=== PATIENT | female | born 1950 | race Caucasian/White ===

== ENCOUNTER 2023-05-19 07:39 | Inpatient (IN) | payer MEDICARE, SELFPAY ==
[2023-05-08 09:13] VITALS: BMI 29.5
[2023-05-19] VITALS (18 sets, daily range): BP systolic 105–149; BP diastolic 52–85; PULSE 73–90; RESP 14–20; TEMP 35.9–37; O2SAT 16–98; BMI 29.5
[2023-05-19] MEDS: LACTATED RINGERS 1,000 ML 100 ML IV ×3 (08:23→13:30)
--- NOTE | 2023-05-19 09:17 | PM.PREOP ---
Pre-operative Note Interval Note History & Physical reviewed/Exam performed by Physician: Yes Changes to H&P: No
[2023-05-19] MEDS: CEFAZOLIN 2 GM/100 ML PREMIX 100 ML IV ×2 (09:50→17:15)
--- NOTE | 2023-05-19 10:01 | SUR.OPER ---
Prone on spine table, head in foam head support, padded chest and pelvic supports, gel pad at knees, lower legs supported by pillows; nipples, genitalia and toes free of pressure, arms secured on foam padded arm boards at <90 degrees abduction. Tape over blanket at thigh secured to table.
[2023-05-19] MEDS: BUPIVACAINE 0.25% (PF) 30 ML, EPINEPHrine 0.15 MG INJ (10:11)
[2023-05-19] MEDS: BUPIVACAINE LIPOSOME 266 MG/20 ML VIAL INJ (10:12)
--- NOTE | 2023-05-19 13:21 | P.OP_ITS ---
Operative Date/Time/Diagnoses Date of procedure: 05/19/23 Time of procedure: 10:00 Pre-op diagnosis: 1. L4-5 spondylosis with radiculopathy 2. L5-S1 anterolisthesis 3. L5-S foraminal stenosis with radiculopathy Post-op diagnosis: same Procedure & Clinicians Procedure: 1. L4-5, L5-S1 Postero-lateral and posterior interbody fusion 2. L4-5, L5-S1 interbody cage placement. 3. L4-5, L5-S1 decompressive laminectomy with bilateral facetecomies 4. L4-5, L5-S1 Posterior segmental instrumentation 5. Galt of bone marrow from iliac crest 6. Utilization of microsurgical technique and operating microscope 7. Utilization of robotic assisted navigation Same procedure as scheduled: Yes Indications: Patient has been having chronic back pain and worsening lumbar radiculopathy. Patient was found have grade 3 anterolisthesis at L5-S1 with severe bilateral neural foraminal stenosis correlating with her back and leg pain. Patient was scheduled for L4-5 L5-S1 fusion using L4 pedicle as pivot point for assistance of reducing patient has anterolisthesis as well as gaining additional points of fixation to prevent hardware loosening/failure. Patient failed multiple conservative management with worsening pain weakness and numbness in her lower extremity. Patient has been having difficulty performing activity of daily living. After discussing risks benefits of treatment options, patient elected proceed with surgery. Surgeon: Rachael Hurtado Auctioneer Tobacco: Lanette Queen Click Yes if Unassisted: No Anesthesia Type: General Operative Notes Closure Type: primary Specimen(s): none sent Prosthetic devices, grafts, tissues, transplants, or devices: Globus CREO MIS screws, Rise cages Applied: catheter Estimated Blood Loss (mL): 100 Blood products transfused: none Procedure in detail: Patient was seen in the preoperative area. Risks and benefits of the surgery was discussed with the patient. Informed consent was obtained from the patient and placed in the chart. Surgical site was marked. Patient was taken to the operative room. General anesthesia was administered. Prophylactic antibiotic was given to the patient less than 30 min before the incision was made. Patient was placed into a prone position on the [place] table. Patient's back was then prepped and draped in the sterile fashion. Time-out was performed at this time. After patient was prepped and draped, patient's PSIS was palpated and marked bilaterally. Small 1 cm incision was made over the PSIS for placement of the reference probes. Two trocar was placed into the PSIS 1 on each side. The reference probe was attached to the trocar of the reference apparatus. At this time the C-arm imaging was used to confirm AP and lateral of L4-L5, L5- S1 vertebrae and merged the C-arm imaging using the Root Orange navigation system with the CT of the lumbar spine. After successful merging was completed and confirmed, skin marker was used to kaye out the skin incision using the NanoH2O robotic arm. Bilateral incision was made at this time. Pre templated trajectory was used and guided using the NanoH2O robotic navigation system for bilateral L4, L5, S1 pedicle screw placement. This was done by using the robotic arm to guide the high-speed bur to make a cortical entry point. Next a drill was placed also using the robotic arm and guided using the navigation system drilling partially through bilateral L4, L5 and S1 pedicles. Next L4, L5, S1 pedicle screws it was pre templated and measured was placed onto the power non emergency services ambulance driver and inserted into the pedicles bilaterally. After all 6 screws were placed C-arm imaging was taken of both AP and lateral to confirm the placement. Excellent placement of the screws were confirmed and a matched precisely with the pre planned screw placement using the navigation system. MARs retractor was inserted using FreshPlanetivation guidence. Globus MARS retractors was placed inside the incision and docked onto the L4 and L5 lamina. Using microsurgical technique and operating microscope, a L4, L5 laminectomy and L4-5, L5-S1 facetectomy was performed using a Kerrison rongeur. The laminectomy and facetectomy was performed in order to decompress patient's cauda equina as well as the nerve roots exiting at the L4-5, L5-S1 level. Patient was found have severe lateral recess and neural foramen stenosis which was fully decompressed after the laminectomy facetectomy. More than 75% of the facets were removed during the process of decompression rendering L4-5, L5-S1 level grossly unstable and required a fusion procedure at the same time. The disc space at L4-5, L5-S1 was identified, and a total diskectomy was performed at L4- 5, L5-S1 level. The endplates were decorticated using a rasp and shaver. The total diskectomy and decortication was performed at L4-5, L5-S1 level in order to to accomplish a L4-5, L5-S1 fusion. The local bone from the laminectomy and facetectomy was saved for local bone grafting. After the total diskectomy and decortication was completed, Trifecta bone graft material was combined with local bone that was harvested earlier. At this time, a separate skin is incision was made over the iliac crest. A Jamshidi needle was inserted into the iliac crest through a separate skin incision. 5 cc of bone marrow aspiration was obtained through the separate skin incision using a Jamshidi needle from the iliac crest. The bone marrow aspiration was combined with local bone and the Trifecta bone grafting material. The bone grafting material was placed into the L4-5, L5-S1 interbody space along with a expandable cage. The cage was expanded to its maximum height using the torque limiting screwdriver. The disc preparation as well as the cage insertion were also performed under navigation guidance. After the cage was placed, AP and lateral C-arm imaging was taken to confirm placement of the cage and excellent position was confirmed. Globus MARS retractor was inserted and docked onto the L4-5, L5-S1 posterolateral gutter on the right side. Using the power drill, posterior- lateral decortication was performed at L4-5, L5-S1 level until bleeding cortical bone was identified. The remaining bone grafting material was placed into the L4-5, L5-S1 posterior lateral gutter he order to accomplish posterolateral fusion at the L4-5, L5-S1 level. At this time the tulips were attached to the L4, L5, S1 pedicle screw shanks. After measuring the length of the rods, they were inserted into the tulips of the pedicle screws and locked in place using locking caps and torque limiting screwdriver bilaterally. Total 6 caps and 2 titanium rods was used in order to complete the posterior instrumentation construct. During the rodney insertion, the right L5 pedicle screw was felt to not have appropriate purchase. Using 2 C arms the L5 pedicle screw was redirected by using a Jamshidi needle into the L5 pedicle and then a guidewire was placed over the Jamshidi needle and then finally a 7.5 mm cannulated screw was placed over the guidewire into the L5 pedicle. Appropriate purchase was achieved by using the new trajectory for the L5 pedicle screw placement. Locking caps was used to reduce the patient's spondylolisthesis at L5-S1. Partial reduction was able to be accomplished with concerns of additional reduction may cause screw pullout and loosening. After all the hardware was placed, and confirmed with AP and lateral C-arm imaging, the wound was then irrigated with sterile normal saline and packed with Ray-Radha gauze for 3 min to accomplish hemostasis. After the gauze was removed the deep fascia was closed with #1 Vicryl suture. The subcutaneous layer was closed with 2-0 Vicryl. The skin was closed with skin josé miguel. Patient tolerated the procedure well. There were no complications. The Operation could not have been safely performed without compromising the technical result or length of the procedure, without the assistance of a skilled medical surgical tech. The medical surgical tech was medically necessary for proper positioning, retraction and manipulation of instruments, proper exposure, surgical preparation, and manipulation of tissue. Neuro monitoring system was used to monitor patient's neurologic status throughout entire procedure. There was no disturbance of the neural monitoring signals throughout the case. Complications: none Post-operative Condition: stable Disposition: PACU Plan for aftercare: Admit to inpatient hospital
--- NOTE | 2023-05-19 13:35 | DI.RAD.S_ITS ---
PROCEDURE: XR LUMBAR SPINE 2-3V INDICATIONS: L4-5. L5-S1 TLIF TECHNIQUE: Single lateral intraoperative low resolution fluoroscopic spot film COMPARISON: None. FINDINGS: Lumbar discectomy and fusion with posterior rodney and screw instrumentation in good position noted L4-5 and L5-S1 as indicated in the history IMPRESSION: 1. Fluoroscopic guidance Approved by: Armani Dash M.D. on 05/19/2023 at 15:46
[2023-05-19] MEDS: HYDROMORPHONE 1 MG INJ IV ×2 (14:06→14:23)
[2023-05-19] MEDS: ONDANSETRON 4 MG/2 ML INJ IV (14:07)
[2023-05-19] MEDS: OXYCODONE IR 5 MG TABLET PO (14:10)
[2023-05-19] MEDS: methocarbamoL 500 MG TABLET 750 MG PO (14:10)
[2023-05-19] MEDS: ACETAMINOPHEN IV 1,000 MG/100 ML VIAL 400 MG IV (14:19)
[2023-05-19] MEDS: GABAPENTIN 300 MG CAPSULE PO ×2 (15:44→20:51)
[2023-05-19] MEDS: ACETAMINOPHEN 325 MG TABLET 650 MG PO ×2 (18:03→23:26)
[2023-05-19] MEDS: SENNOSIDES 8.6 MG TABLET 17.2 MG PO (20:51)
[2023-05-19] MEDS: DOCUSATE 100 MG CAPSULE PO (20:51)
[2023-05-19] MEDS: MELATONIN 3 MG TABLET PO (20:51)
[2023-05-19] MEDS: OXYCODONE IR 10 MG TABLET PO (20:55)
--- NOTE | 2023-05-19 23:17 | PM.PN.1 ---
Subjective Subjective Interval history: nurse jacklyn called at 2200- stated - noted pt heart rate mostly 80s then some pvcs?- nurse thought irregular- HR report jump around up to 150s short span? put on tele- then ekg -one sinus and then also an area-indeterminate?- ( reviewed chart (- no vitals documented after 1999 yet)--on further inquiry-- per nurse current vitals NL and pt asymptomatic- pt on fluids/asymptomatic - rec -monitor-- if change then hospitalist consult.- Exam Vital Signs (past 8 hours): - 05/19/23 15:25 05/19/23 15:55 05/19/23 16:55 Temperature 97.4 F L 96.7 F L Pulse Rate 76 75 80 Respiratory Rate 15 16 18 Blood Pressure 136/59 L 127/67 137/59 L Pulse Oximetry 96 96 95 Oxygen Flow Rate 2 0 1 05/19/23 17:55 05/19/23 20:00 Temperature 96.9 F L 97.2 F L Pulse Rate 85 85 Respiratory Rate 16 16 Blood Pressure 132/62 131/63 Pulse Oximetry 93 94 Oxygen Flow Rate 0 0 Oxygen Delivery Method Nasal Cannula Oxygen Flow Rate 0 PFSH Medical History (Updated 05/08/23 @ 10:15 by Elaina Parker RN) History of COVID-19 (04/2019) Spinal stenosis Pre-diabetes Kidney stones Sciatica Surgical History (Updated 05/08/23 @ 10:11 by Elaina Parker RN) Hx of colonoscopy (03/2023) Hx of knee surgery Hx of tonsillectomy S/P epidural steroid injection Social History household members: spouse Smoking Status: Never smoker alcohol intake: current Quality VTE Deep Vein Thrombosis/Pulmonary Embolism Present on Admission: No
[2023-05-19] MEDS: LACTATED RINGERS 1,000 ML 125 ML IV (23:26)
--- NOTE | 2023-05-20 00:21 | PC.NURSE ---
Addendum entered by Patsy Garibay R.N. 05/20/23 05:26: Last telemetry reading was SR and BP improved back up to 125/63. Has remained asymptomatic. ICU contacted this morning and report they have not been seeing any tachycardic HR past several hours. Patient has been awake most of night, repositioned as she requests but she is continuing to decline getting out of bed until PT comes. Bed was positioned into chair formation for her and she [place]. Original Note: Patient is alert and oriented. Breath sounds CTA with RA sat of 94%; on continuous oximetry. HR noted to be irregularly irregular so placed on telemetry to determine rhythm and AVIATION PROJECT ENGINEER reports periods of SR with intermittent HR up into 150's where rhythm could not be determined. EKG done which showed similar results. Coordinator, Charmaine, informed and she took EKG to ER MD who declined to interpret the results. Dr. Velásquez contacted by GRIFFIN Stevenson and she initally wanted hospitalist to consult but shortly after she called back and details of what was done was repeated. Told that HR on tele monitor is showing stable rhythm most of the time but continues to intermittently go back up into the 130-150 range. Patient has been asymptomatic so Dr. Velásquez decided to just continue with telemetry monitoring and to notify her if patient's condition changes. At 0000 patient did state she does intermittently feel her heart with palpitations but only briefly and has no chest pain or SOB. BP did decline some at 0000 to 105/52 with MAP of 65. No dizziness or lightheadedness. Denies nausea. BT present but no flatus as yet. Indwelling catheter is patent. Is assisted to reposition q2h but has declined to get out of bed to stand, walk or sit in chair. Dressing to back is CDI. Has had pain 5-7/10 and has been medicated with both oxycodone + tylenol and has had ice pack to back with good results. CMS is intact. Is wearing bilateral calf SCD's. Fall risk score is high and bed alarm is activated.
[2023-05-20] MEDS: CEFAZOLIN 2 GM/100 ML PREMIX 100 ML IV (01:51)
[2023-05-20] MEDS: OXYCODONE IR 10 MG TABLET PO ×6 (01:54→23:53)
[2023-05-20 04:14] VITALS: BP 125/63; PULSE 83; RESP 16; TEMP 36.3; O2SAT 94
[2023-05-20 06:24] LABS: Hematocrit 34.8 % (36-46); Hemoglobin 11.7 g/dL (12.0-16.0)
[2023-05-20 08:00] VITALS: BP 127/60; PULSE 72; RESP 18; TEMP 36.4; O2SAT 96
--- NOTE | 2023-05-20 08:02 | PM.PNPO.1 ---
Subjective Subjective Date Patient Seen: 05/20/23 Time Patient Seen: 08:03 Interval history: Patient denies chest pain. No nausea or vomiting. States yesterday evening to nurse told her her heart was racing and she did note some palpitations but states otherwise she would not have known. She has no history of heart problems. Her pain this morning is [id number]. Denies fever chills. No shortness of breath. Exam Vital Signs (past 8 hours): - 05/20/23 04:14 Temperature 97.3 F L Pulse Rate 83 Respiratory Rate 16 Blood Pressure 125/63 Pulse Oximetry 94 Oxygen Flow Rate 0 Oxygen Delivery Method Room Air Oxygen Flow Rate 0 Narrative Exam Narrative: Pleasant 72-year-old female resting comfortably in bed in no apparent distress. Motor functions intact bilateral lower extremities. Sensation grossly intact to light touch bilateral lower extremities. Const General: cooperative and comfortable Nutritional Appearance: average body habitus Orientation: alert Resp Effort & Inspection: normal respiratory effort and able to speak in complete sentences Objective Labs 05/20/23 05:20 Labs: Laboratory Results - last 24 hr 05/20/23 05:20 Hgb 11.7 L Hct 34.8 L PFSH Medical History History of COVID-19 (04/2019) Spinal stenosis Pre-diabetes Kidney stones Sciatica Surgical History Hx of colonoscopy (03/2023) Hx of knee surgery Hx of tonsillectomy S/P epidural steroid injection Social History household members: spouse Smoking Status: Never smoker alcohol intake: current Assessment & Plan Post-op Postoperative Procedures: Procedures Operation Date: 05/19/23 09:15 Actual Procedure Side Surgeon p L4-5, L5-S1 TLIF with posterior instrumentation-Robot Rachael Hurtado MD Postoperative day: 1 Postoperative status narrative: Stable, Dr. Arteaga called last night for tachycardia possible PVCs patient remained asymptomatic overnight Postoperative plan narrative: Multimodal pain management Ambulate with physical therapy, limit bending, twisting, lifting Continue tele for now if patient continues to remain asymptomatic with physical therapy we will discontinue tele Disposition, to be determined Quality VTE Deep Vein Thrombosis/Pulmonary Embolism Present on Admission: No
[2023-05-20] MEDS: GABAPENTIN 300 MG CAPSULE PO ×3 (08:48→20:21)
[2023-05-20] MEDS: ACETAMINOPHEN 325 MG TABLET 650 MG PO ×3 (08:48→22:26)
[2023-05-20] MEDS: DOCUSATE 100 MG CAPSULE PO ×2 (08:48→20:21)
--- NOTE | 2023-05-20 09:45 | PT.IIE ---
Current Diagnoses Spondylolisthesis, lumbar region (05/19/23) Spinal stenosis, lumbar region with neurogenic claudication (05/19/23) Surgery Performed Operation Date: 05/19/23 09:15 Actual Procedures p L4-5, L5-S1 TLIF with posterior instrumentation-Robot - Rachael Hurtado MD Surgical History (Last Reviewed 05/20/23 @ 08:04 by Christopher Triplett PA-C) Hx of colonoscopy (03/2023) Hx of knee surgery Hx of tonsillectomy S/P epidural steroid injection Medical History (Last Reviewed 05/20/23 @ 08:04 by Christopher Triplett PA-C) History of COVID-19 (04/2019) Kidney stones Pre-diabetes Sciatica Spinal stenosis Physical Therapy Inpatient Evaluation/Re-Eval M1 PT/OT-IP Prior Functional Status Start: 05/20/23 12:29 Freq: NEEDED Status: Active Protocol: Document 05/20/23 09:45 AB (Rec: 05/20/23 12:42 AB [id number]) Medical Review Prior Functional Status Medical History Reviewed Yes Communication able to make needs known Mobility and Gait pt stated that she was indpeemdent with all mobilities and ambulation without AD Social History Household Members spouse Living Arrangements House Number of Floors (Floors) Two Floors Number of Stairs To Enter/Railing? no steps to enter has 13 steps L rail descending to bedroom level Home Environment Standard Height Toilet,Walk in Shower,Built-In Shower Seat Home Equipment Front Wheel Walker,Aerial Installer, Grab Bars In Shower Additional Social History Comment pt's spouse Kam will be able to assist pt M2 PT-IP Current Condition Start: 05/20/23 12:29 Freq: NEEDED Status: Active Protocol: Document 05/20/23 09:45 AB (Rec: 05/20/23 12:42 AB [id number]) Physical Therapy Current Condition Current Condition Evaluation Date 05/20/23 Treatment Diagnosis s/p L4-5, L5S1 TLIF; difficulty in walking Onset Date 05/19/23 M3 PT-IP Subjective Start: 05/20/23 12:29 Freq: NEEDED Status: Active Protocol: Document 05/20/23 09:45 AB (Rec: 05/20/23 12:42 AB [id number]) Subjective Physical Therapy Visit Type Type Initial Evaluation Visit Start Time 09:45 Visit Stop Time 10:45 Number of SAFETY PHYSICIAN Visits 0 Physical Therapy Visit Comments Patient Comments agreeable to do PT Therapy Pain Assessment Pain When Pain Assessed At Rest Pain Present Pain Present Pain Reported Location Bilateral Back Intensity 1 Scale Used increases to 4/10 with mobility Description Tightness Pain Management Techniques Apply Cold,Distraction, Modification of Treatment,Re- positioning,Timing of Activity with Medications M4 PT-IP Mobility and Gait Start: 05/20/23 12:29 Freq: NEEDED Status: Active Protocol: Document 05/20/23 09:45 AB (Rec: 05/20/23 12:42 AB [id number]) PT-Bed Mobility Assessment Rolling Type of Rolling Log Rolling Level of Assist Minimal Assistance Supine to Sit Supine to Sit Minimal Assistance PT-Transfer Assessment Sit to and From Stand Sit to and from Stand Minimal Assistance,Use of Upper Extremities Equipment Transfer Assistive Device Gait Belt,Front Wheeled Walker Orthotic/Prosthetic Devices or Brace: No Transfers Transfer Destination Chair Transfer Technique ambulated Transfer Ability Level of Assist Minimal Assistance,1 Person Assistance,Use of Upper Extremities Comments Mobility Comments pt supine in bed. spouse in room obtained PLOF and home set up from pt and spouse. post-op folder provided and educated pt and spouse regarding back precautions and log roll bed mobility. BP in supine: 112/60. pt completed log roll supine to sit min A and max cues for techniques. pt required increase time to complete task . pt was able to sit on EOB SBA. c/o slight lightheadedness. BP: 136/71. completed sit to stand min A and max cues. pt ambulated to the chair using FWW min A and max cues. presents with unsteady gait with narrow HOLLIS and decrease LE clearance and step length. educated pt on safety . assessed sit<>stand from chair min A and cues. pt agreed to stay up on the chair. positioned pt on the chair. ice pack provided. call light and table placed within reach . caregiver training set up at 2pm this afternoon. Gait Assessment Gait Gait Assistance Required: Minimum Assistance Distance (Feet) 12 Able to Maintain Weight Bearing Status Yes During Gait Assistive Devices Assistive Device Gait Belt,Front Wheeled Walker Orthotic/Prosthetic Devices or Brace: No Gait Deviations General Gait Pattern Ataxic,Decreased Stride Length ,Decreased Feet Clearance, Narrow Based Gait,Step-to Gait Factors Limiting Gait Function Factors Limiting Gait Function Decreased Activity Tolerance, Decreased Strength,Difficulty Following Directions,Limited Range of Motion,Pain,Poor Balance,Poor Safety Awareness PT-Balance Assessment Sitting Balance and Reactions Static Sitting Balance Ability Good Dynamic Sitting Balance Ability Good Standing Balance and Reactions Static Standing Balance Ability Fair Dynamic Standing Balance Ability Fair Device Used FWW M5 PT-IP Objective Assessments Start: 05/20/23 12:29 Freq: NEEDED Status: Active Protocol: Document 05/20/23 09:45 AB (Rec: 05/20/23 12:42 AB [id number]) Orientation Orientation/Cognition Level of Alertness Alert Orientation Name,Place,Situation Language Function Ability No Deficits Noted Safety Awareness Decreased Safety Awareness Memory Description Short Term Impaired Gross Range of Motion Lower Extremity ROM Assessment Within Functional Limits Strength Lower Extremity Strength Assessment Right Impaired Hip 3+/5 Knee 3+/5 Coordination Assessment Gross Coordination Gross Coordination WNL Muscle Tone Muscle Tone WNL Yes M6 PT-IP Treatment Start: 05/20/23 12:29 Freq: NEEDED Status: Active Protocol: Document 05/20/23 09:45 AB (Rec: 05/20/23 12:42 AB [id number]) Physical Therapy Treatment Education Education Provided Precautions,Weight Bearing Status,Post-Op Packet,Safety M7 PT-IP Assessment and Plan Start: 05/20/23 12:29 Freq: NEEDED Status: Active Protocol: Document 05/20/23 09:45 AB (Rec: 05/20/23 12:42 AB [id number]) PT Summary Assessment and Plan Potential Rehabilitation Potential Fair Status of Condition at Evaluation Evolving Summary Impairments Pain,ROM,Strength,Balance, Coordination,Sensation,Tone, Cognition,Bed Mobility, Transfers,Gait,Activity Tolerance Assessment Summary pt is a 72 y/o F s/p L4-5, L5S1 TLIF POD 1. pt has back precautions. pt requiring min A and max cues with all tasks . pt plans to go home with spouse to assist her. caregiver training set up this afternoon at 2pm. will continue to assess progress. Goals Bed Mobility Goal Independent Transfer Goal Independent,Front Wheeled Walker Gait Goal Independent,Front Wheel Walker Gait Distance 200 Other Goals up/down 13 steps R rail ascending SBA Days to Meet Goals 5 Frequency of Treatment Frequency Of Treatment Twice a Day Treatment Plan Physical Therapy Treatment Plan Bed Mobility Training,Transfer Training,Gait Training, Therapeutic Exercise,Balance Retraining,Post Op Education, Discharge Planning,Hot or Cold Pack,Neuromuscular Re-ed, Coordination Retraining,Manual Therapy Precautions Lumbar Precautions Log Roll,No Twisting,Limit Bending,Lifting Restriction of 10 lbs,Gait Belt above Incisional Area Recommendations To Nursing Amount of Assist Needed 1 Person Assist Discharge Recommendations PT Discharge Recommendations Home with 24/ Assist Available,Home Health Transportation Needs at Discharge Private Vehicle
--- NOTE | 2023-05-20 11:20 | OT.IP.EVAL ---
Current Diagnoses Spondylolisthesis, lumbar region (05/19/23) Spinal stenosis, lumbar region with neurogenic claudication (05/19/23) Surgery Performed Operation Date: 05/19/23 09:15 Actual Procedures p L4-5, L5-S1 TLIF with posterior instrumentation-Robot - Rachael Hurtado MD Past Medical History (Last Reviewed 05/20/23 @ 08:04 by Christopher Triplett PA-C) History of COVID-19 (04/2019) Kidney stones Pre-diabetes Sciatica Spinal stenosis Surgical History (Last Reviewed 05/20/23 @ 08:04 by Christopher Triplett PA-C) Hx of colonoscopy (03/2023) Hx of knee surgery Hx of tonsillectomy S/P epidural steroid injection Occupational Therapy Inpatient Evaluation/Re-Eval M1 PT/OT-IP Prior Functional Status Start: 05/20/23 11:28 Freq: NEEDED Status: Active Protocol: Document 05/20/23 10:33 [facility] (Rec: 05/20/23 11:46 [facility] [id number]) Medical Review Prior Functional Status Communication Independent Mobility and Gait Per pt walking without a device but limited due to pain . Occasionally pt would use surfaces for reassurance. Prior Functional Level (Other details) Pt to be home to assist. Social History Household Members spouse Living Arrangements House Number of Floors (Floors) Two Floors Number of Stairs To Enter/Railing? NO steps from the garage and 13 steps with left rail to get downstairs. Home Environment Standard Height Toilet,Walk in Shower,Built-In Shower Seat Home Equipment Front Wheel Walker,Customer Experience Manager, Grab Bars In Shower Additional Social History Comment Pt has a counter on the right of the toilet. Pt has a toilet paper aid. M2 OT-IP Current Condition Start: 05/20/23 11:28 Freq: Status: Active Protocol: Document 05/20/23 10:33 [facility] (Rec: 05/20/23 11:46 [facility] [id number]) Occupational Therapy Current Condition Current Condition Evaluation Date 05/20/23 Treatment Diagnosis S/P L4-5, L5-S1 TLIF Diagnosis Onset Date 05/19/23 Post Operative Precautions Lumbar Precautions Log Roll,No Twisting,Limit Bending,Lifting Restriction of 10 lbs,Gait Belt above Incisional Area M3 OT- IP Subjective and Pain Start: 05/20/23 11:28 Freq: Status: Active Protocol: Document 05/20/23 10:33 [facility] (Rec: 05/20/23 11:46 [facility] [id number]) OT- Subjective Occupational Therapy Visit Type Type Initial Evaluation Visit Start Time 10:33 Visit Stop Time 11:20 Occupational Therapy Visit Comments Patient Comments Pt agreed to get up and do caregiver training with her . Patient/Caregiver Goals TO go home. OT Pain Assessment Pain When Pain Assessed During Mobility Pain Present Pain Present Pain Reported Location Bilateral Back Pain Behaviors Crying,Facial Grimacing M4 OT- IP ADL's Start: 05/20/23 11:28 Freq: Status: Active Protocol: Document 05/20/23 10:33 [facility] (Rec: 05/20/23 11:46 [facility] [id number]) OT PXI-[id number]-Mgpnuxh General Evaluation Self-Feeding Ability Independent OT ADL-Grooming Comments OT Grooming Comments Not performed. OT ADL-Oral Care Comments Oral Care Comments Educated best to spit into a cup or hinge at her hips to best follow her back precautions. OT ADL-Dressing General Eval Lower Body Dressing Ability Maximum Assistance Comments OT Dressing Comments Pt has a procurement analyst to use and pt states to just have her assist with socks. Able to inform pt of use of sock aid to assist if needed. OT ADL-Toileting Comments OT Toileting Comments Pt has a toilet paper aid at home to help with hygiene needs. Educated best to use wipes and stand for safety to follow her back precautions. Able to try getting up from the toilet with pt's and able to do with good safety of simulating right counter with armrest of BSC and use of FWW to stand with her 's help. Suggested BSC if needed, but pt's states will be there to assist and has use of right counter to help to stand as well. OT ADL-Bathing Comments OT Bathing Comments Educated to cover the dressing during showering needs. Also pt would benefit from a a hand held shower spray. M5 OT- IP IADL's Start: 05/20/23 11:28 Freq: Status: Active Protocol: Document 05/20/23 10:33 [facility] (Rec: 05/20/23 11:46 [facility] [id number]) OT-Instrumental Activities of Daily Living Deficits IADL Deficits Identified Deficits Home Safety Awareness Awareness of Need for Assistance at Home Good Awareness Ability to Problem Solve Emergency Able to Problem Solve Situations Meal Preparation Meal Preparation Caregiver Provides Assist Loin Trimmer Loin Trimmer Caregiver Provides Assist M6 OT- IP Functional Cognition Start: 05/20/23 11:28 Freq: Status: Active Protocol: Document 05/20/23 10:33 [facility] (Rec: 05/20/23 11:46 [facility] [id number]) Cognitive Factors Limiting Selfcare Function Cognitive Ability Level of Alertness Alert Patient Orientation Name,Age,Birthday,Month,Date, Year,Day of Week,Place, Situation Attention Span Ability Capable of Focused Attention, Capable of Sustained Attention Ability to Follow Commands Able to Follow One Step Commands with Increased Time, Able to Follow One Step Commands with Repetition Cognitive Comments Cognitive Assessment Comments Pt able to follow commands to incorporate back precautions for her ADL and mobility needs . Pt needing encouragement for reassurance and confident. Able to start caregiver training with her . OT- Vision and Hearing OT- Hearing Assessment OT- Hearing Assessment WFL OT- Vision Assessment Visual Acuity Glasses All The Time Visual Attentiveness WFL Occular Pursuits WFL M7 OT- IP Mobility and Balance Start: 05/20/23 11:28 Freq: Status: Active Protocol: Document 05/20/23 10:33 [facility] (Rec: 05/20/23 11:46 [facility] [id number]) OT-Transfer Assessment Sit to and From Stand Sit to and from Stand Contact Guard Assistance, Minimal Assistance Transfers Transfer Ability Contact Guard Assistance, Minimal Assistance Technique Transfer Destination Chair,Toilet Transfer Technique Stand Step Pivot Devices Transfer Assistive Devices Gait Belt,Front Wheeled Walker Comments Mobility Comments Able to educated pt's to gilbert/doff the gait belt and hold to assist pt to stand if needed. Pt needing from CGA to DAVID from lower surfaces to stand to the FWW. OT- Balance Assessment Sitting Balance and Reactions Static Sitting Balance Ability Good Dynamic Sitting Balance Ability Good Standing Balance and Reactions Static Standing Balance Ability Fair Dynamic Standing Balance Ability Fair M8 OT- IP Objective Assessments Start: 05/20/23 11:28 Freq: Status: Active Protocol: Document 05/20/23 10:33 [facility] (Rec: 05/20/23 11:46 [facility] [id number]) OT Strength Comments Strength Comments WFL for needs. M9 OT- IP Assessment and Plan Start: 05/20/23 11:28 Freq: Status: Active Protocol: Document 05/20/23 10:33 [facility] (Rec: 05/20/23 11:46 [facility] [id number]) OT Summary Assessment and Plan Potential Rehabilitation Potential Excellent Analytic Complexity at Evaluation Low Summary OT Impairments Pain,Strength,Balance, Functional Mobility,Grooming, Dressing,Toileting,Bathing, Toilet Transfers,Shower Transfers Progress Towards Goals Progressing Toward Goals Assessment Summary Pt low complexity and main barriers are pain,steps, and needing reassurance so able to follow her back precautions. Pt has a supportive to assist with her needs. Pt to go home with assist when medically stable. Goals Grooming Goal Independent Dressing Goal Minimal Assistance,Customer Experience Manager Toileting Goal Independent Bathing Goal Standby Assistance Toilet Transfer Goal Independent Shower Transfer Goal Standby Assistance Days to Meet Goals 5 Frequency of Treatment Frequency Of Treatment Once a Day Treatment Plan OT Treatment Plan ADL Training,Functional Mobility,Patient/Family Education,Discharge Planning Discharge Recommendations OT Discharge Recommendations Home with 02/09 Assist Available Home Equipment Needs [facility] Transportation Needs at Discharge Private Vehicle
[2023-05-20 12:00] VITALS: BP 104/55; PULSE 86; RESP 16; TEMP 36.4; O2SAT 94
--- NOTE | 2023-05-20 14:01 | PT.IPTN ---
Current Diagnoses Spondylolisthesis, lumbar region (05/19/23) Spinal stenosis, lumbar region with neurogenic claudication (05/19/23) Surgery Performed Operation Date: 05/19/23 09:15 Actual Procedures p L4-5, L5-S1 TLIF with posterior instrumentation-Robot - Rachael Hurtado MD Physical Therapy Treatment Note M2 PT-IP Current Condition Start: 05/20/23 12:29 Freq: NEEDED Status: Active Protocol: Document 05/20/23 09:45 AB (Rec: 05/20/23 12:42 AB [id number]) Physical Therapy Current Condition Current Condition Evaluation Date 05/20/23 Treatment Diagnosis s/p L4-5, L5S1 TLIF; difficulty in walking Onset Date 05/19/23 M3 PT-IP Subjective Start: 05/20/23 12:29 Freq: NEEDED Status: Active Protocol: Document 05/20/23 14:35 TS (Rec: 05/20/23 14:51 TS [id number]) Subjective Physical Therapy Visit Type Type Treatment Note Visit Start Time 14:01 Visit Stop Time 14:35 Notes Spouse present Number of LAWYERS Visits 1 Physical Therapy Visit Comments Patient Comments Pt found resting in chair, is agreeable to PT. Therapy Pain Assessment Pain When Pain Assessed At Rest Pain Present Pain Present Pain Reported M4 PT-IP Mobility and Gait Start: 05/20/23 12:29 Freq: NEEDED Status: Active Protocol: Document 05/20/23 14:35 TS (Rec: 05/20/23 14:51 TS [id number]) PT-Bed Mobility Assessment Rolling Type of Rolling Log Rolling Level of Assist Standby Assistance Sit to Supine Sit to Supine Standby Assistance PT-Transfer Assessment Sit to and From Stand Sit to and from Stand Contact Guard Assistance Equipment Transfer Assistive Device Gait Belt,Front Wheeled Walker Orthotic/Prosthetic Devices or Brace: No Comments Mobility Comments STS from chair CGA with use of FWW, pt is slow to stand. She ambulated ~70' SBA/CGA with FWW initially step to gait progressed to step thru gait with cues. She performed steps x7 CGA from spouse sidestepping with single rail, pt cued for increased feet clearance. Pt ambulated back to room, requested to use toilet. STS from toilet SBA with use of FWW and grab bar. Sit to supine into bed SBA with use of bed rail, pt cued for slower descent due to quickly falling onto side. ROLLY Jackson discussing d/c plan with pt, pt would like to stay another night. Gait Assessment Gait Gait Assistance Required: Standby Assistance,Contact Guard Assist Distance (Feet) 70 Able to Maintain Weight Bearing Status Yes During Gait Assistive Devices Assistive Device Gait Belt,Front Wheeled Walker Orthotic/Prosthetic Devices or Brace: No Gait Deviations General Gait Pattern Ataxic,Decreased Stride Length ,Decreased Feet Clearance, Narrow Based Gait,Step-to Gait Factors Limiting Gait Function Factors Limiting Gait Function Decreased Activity Tolerance, Decreased Strength,Difficulty Following Directions,Limited Range of Motion,Pain,Poor Balance,Poor Safety Awareness Stair Climbing Assessment Evaluation Level of Assist On Stairs Contact Guard Assistance Devices Stair Climbing Assistive Devices Left Railing Technique/Endurance Stair Climbing Direction Ascend and Descend Stair Climbing Technique Step to Step Number of Steps Climbed 7 Comments Stair Climbing Comments See mobility comments PT-Balance Assessment Sitting Balance and Reactions Static Sitting Balance Ability Good Dynamic Sitting Balance Ability Good Standing Balance and Reactions Static Standing Balance Ability Fair Dynamic Standing Balance Ability Fair Device Used FWW M5 PT-IP Objective Assessments Start: 05/20/23 12:29 Freq: NEEDED Status: Active Protocol: Document 05/20/23 09:45 AB (Rec: 05/20/23 12:42 AB [id number]) Orientation Orientation/Cognition Level of Alertness Alert Orientation Name,Place,Situation Language Function Ability No Deficits Noted Safety Awareness Decreased Safety Awareness Memory Description Short Term Impaired Gross Range of Motion Lower Extremity ROM Assessment Within Functional Limits Strength Lower Extremity Strength Assessment Right Impaired Hip 3+/5 Knee 3+/5 Coordination Assessment Gross Coordination Gross Coordination WNL Muscle Tone Muscle Tone WNL Yes M6 PT-IP Treatment Start: 05/20/23 12:29 Freq: NEEDED Status: Active Protocol: Document 05/20/23 14:35 TS (Rec: 05/20/23 14:51 TS [id number]) Physical Therapy Treatment Education Education Provided Precautions,Weight Bearing Status,Post-Op Packet,Safety M7 PT-IP Assessment and Plan Start: 05/20/23 12:29 Freq: NEEDED Status: Active Protocol: Document 05/20/23 14:35 TS (Rec: 05/20/23 14:51 TS [id number]) PT Summary Assessment and Plan Potential Rehabilitation Potential Fair Summary Impairments Pain,ROM,Strength,Balance, Coordination,Sensation,Tone, Cognition,Bed Mobility, Transfers,Gait,Activity Tolerance Progress Towards Goals Progressing Toward Goals Assessment Summary Charlotte is progressing well with her mobility. She is CGA for STS with FWW. She progressed her gait to ~70SBA/ CGA with FWW. Initially she was ambulating with FWW and a step to gait, she progressed to step thru gait. She progressed to stairs x7 with single rail and sidestepping CGA. Spouse was instructed in and performed STS, gait, bed and stair training. PT is recommending pt return home with 24/7 assist. Goals Bed Mobility Goal Independent Transfer Goal Independent,Front Wheeled Walker Gait Goal Independent,Front Wheel Walker Gait Distance 200 Other Goals up/down 13 steps R rail ascending SBA Days to Meet Goals 5 Frequency of Treatment Frequency Of Treatment Twice a Day Treatment Plan Physical Therapy Treatment Plan Bed Mobility Training,Transfer Training,Gait Training, Therapeutic Exercise,Balance Retraining,Post Op Education, Discharge Planning,Hot or Cold Pack,Neuromuscular Re-ed, Coordination Retraining,Manual Therapy Precautions Lumbar Precautions Log Roll,No Twisting,Limit Bending,Lifting Restriction of 10 lbs,Gait Belt above Incisional Area Recommendations To Nursing Amount of Assist Needed 1 Person Assist Discharge Recommendations PT Discharge Recommendations Home with 24/7 Assist Available Transportation Needs at Discharge Private Vehicle
--- NOTE | 2023-05-20 15:35 | CM.DANOTE ---
Patient is a 72 yo female admitted on 05/19/23 INPT Status for TLIF. Pt has MCR and [employer] for insurance and her PCP is Boris Nur. EMR was reviewed. Per Ortho PA, pt tolerated procedure well and to work with PT/OT and likely stable for discharge today vs tomorrow. Per PT/OT, recommending safe d/c home with spouse assist. SW met bedside with pt and spouse and explained role and they confirm they live in [facility] and both active and independent at baseline and pt does not typically use DME for ambulation unless for longer distances. Spouse typically drives but pt does on occasion. Pt's DPOA is her spouse Wilbur. They deny any hx of HH or SNF and preference is to discharge home and spouse confirms he can assist but pt anxious about d/c home today and is hopeful to stay one more night and Ortho PA to determine this with pt and spouse today. Plan: SW to follow for plan of discharge home this evening vs tomorrow pending Ortho discussion with spouse assist and outpt f/u. No further SW needs at this time. [employer] Discharge Planning/Care Management CM Discharge Assessment Start: 05/20/23 15:33 Freq: Status: Active Protocol: Document 05/20/23 15:33 BF (Rec: 05/20/23 15:35 BF [id number]) Discharge Planning Assessment Assigned Vice President Sales And Marketing [employer] DPOA/Assigned Designee Name spouse Wilbur Contact Information [phone] Advance Directives? Yes Advance Directives on File No History Provided By Patient,Significant Other, Medical Record Has Patient been admitted in last 30 No days? Prior Living Arrangements House Household Members spouse Type of transporation used prior to Drives own vehicle admit Independent with ADL's Yes Is patient alert and oriented? Yes Caregiver for Another No Community Services used prior to Physical Therapy admission: DME Already Rented / Owned FWW / Walker Patient/Family Preference OP PT Therapy Barriers to Discharge No Discharge Plan Home Transportation Arrangement spouse confirms he can provide transport home Referrals Initiated None needed Whiteboard Updated in Patient Room with Yes name and ext. # of Vice President Sales And Marketing Review Status In Process Please Provide Date Initial DC 05/20/23 Assessment Was Performed Next Review Type Continued Stay Review Pre-Anesthesia Assessment Start: 05/08/23 09:13 Freq: Status: Complete Protocol: Document 05/08/23 09:13 CAB (Rec: 05/08/23 09:51 [facility] [id number]) Pre-Anesthesia Assessment Patient Information Reviewed Via Phone Assessment Assessment Completed With Patient Comment Labs/EKG done per pt, surgeon has, not here Primary Care Provider Boris Nur Seen Specialist in Last 12 Months Yes Specialist Seen Orthopedist Primary Language Indonesian Utility System Repairer Required No Height 160.02 cm Weight 75.75 kg Body Mass Index (BMI) 29.5 Hearing Ability Normal Visual Assist Contacts,Glasses Dentition Type Teeth, Natural Present Barriers to Learning None Hx Anesthesia Reactions No Hx Family Anesthesia Reaction No Hx Malignant Hyperthermia No Hx Blood Transfusions No Anesthesia Review Requested No Hand Grinder No alcohol intake current alcohol intake frequency a few times a week Smoking Status Never smoker Substance Use Type does not use Pain Present Pain Reported Musculoskeletal Symptoms Abnormal Gait,Back Pain, Difficulty Walking,Muscle Weakness,Radiating Pain into Limb History of Falling (Recent or History of No ) Patient is completely paralyzed or No completely immobile Mental Status Oriented to own ability Is patient on oxygen? No Does patient have GLORIA/SOB No Hx Sleep Apnea No Currently Taking a Beta Keo No Hx Chest Pain No Hx SOB No Hx Syncope or Dizziness No Anti-Coagulant Therapy No Has a Continuous Loft Operator No Cardiac Testing No Hx Pacemaker/ICD No Pacemaker Rep Required? No Cardiac Clearance Received Not Applicable Diet Type At Home Regular Dysphagia No Gastrointestinal Symptoms None Chronic UTI No Urinary Catheter Present No Hx Urinary Self Catheterization No Diabetes No: Pre-diabetes Patient No Lactating No Hx Drug Resistant Organism No Presence of External or Internal Medical No Devices Received a COVID vaccine? Yes Received all doses? Yes Marital Status Lives With spouse Current Living Arrangements House Number of Floors (Floors) Two Floors Support System Spouse Does the Patient Have Assistance After Yes Surgery Patient Discharge Plan Description Return Home Comment Pt advised 1-3 night length of stay per surgeon Feels Safe in Current Environment Yes Been Physically Hurt or Threatened By a No Person in Current Environment Do you have thoughts of harming yourself None or others? Are you currently considering suicide? No Do you have a plan to hurt yourself or No Plan others? Do You Have Any Spiritual Beliefs That No May Affect Your HC Choices? Do You Have Any Cultural Practices That No May Affect Your HC Choices? Comment Alexis Who Can We Speak to About Patient's Care Family, friends Identifying Code for Release of Patient Declines to issue Information Health Care Proxy/Next of Kin Kam () Health Care Proxy Emergency Contact Name Gaby (daughter) Emergency Contact Advance Directives? No Power of Stock Or Delivery Clerk No PAC Instructions Durable medical equipment, Medications to take/avoid, Nasal antibiotic,No ETOH/ petroleum product on skin DOS, NPO,Pre-surgical wash,Sensory aids,Sturdy shoes/comfortable clothes,Do not bring valuables and remove jewelry
[2023-05-20 16:00] VITALS: BP 134/58; PULSE 89; RESP 17; TEMP 37; O2SAT 94
[2023-05-20 20:00] VITALS: BP 135/63; PULSE 89; RESP 19; TEMP 36.5; O2SAT 96
[2023-05-20] MEDS: MELATONIN 3 MG TABLET PO (20:22)
[2023-05-20] MEDS: SENNOSIDES 8.6 MG TABLET 17.2 MG PO (20:22)
[2023-05-21] MEDS: OXYCODONE IR 10 MG TABLET PO ×4 (04:59→16:50)
[2023-05-21 05:18] VITALS: BP 109/62; PULSE 87; RESP 17; TEMP 36.6; O2SAT 92
--- NOTE | 2023-05-21 07:08 | PM.PNPO.1 ---
Subjective Subjective Date Patient Seen: 05/21/23 Time Patient Seen: 07:08 Interval history: Charlotte is sitting up in a chair, says she feels much better than she did yesterday, but is still having quite a bit of pain. She understands that pain is to be expected after surgery, but she says it is severe and she cannot get comfortable. Pain in in her back; denies radicular leg pain. She is no longer being monitored and denies any palpitations or feeling of 'heart racing,' but she is apprehensive about hearing she has PVCs. Exam Vital Signs (past 8 hours): - 05/21/23 05:18 Temperature 98 F Pulse Rate 87 Respiratory Rate 17 Blood Pressure 109/62 Pulse Oximetry 92 Oxygen Flow Rate 0 Oxygen Delivery Method Room Air Oxygen Flow Rate 0 Narrative Exam Narrative: 5/5 strength in hip flexors, quadriceps, hamstrings, DF, PF, EHL bilaterally. Sensation to light touch intact throughout BLE. Calves soft, compressible, nontender. Low back dressing placed intraoperatively is CDI. Objective Labs 05/20/23 05:20 PFSH Medical History History of COVID-19 (04/2019) Spinal stenosis Pre-diabetes Kidney stones Sciatica Surgical History Hx of colonoscopy (03/2023) Hx of knee surgery Hx of tonsillectomy S/P epidural steroid injection Social History household members: spouse Smoking Status: Never smoker alcohol intake: current Assessment & Plan Post-op Assessment and plan (1) S/P lumbar fusion: Assessment and Plan narrative: Pt continues to have difficulty w/ pain management and does not feel confident about ability to ambulate and transfer without significant help. Will add cyclobenzaprine to medications, schedule APAP instead of PRN, and add oxycodone 5mg to allow for tapering if possible. Continue work and caregiver training w/ PT. Goal is to discharge home tomorrow with her if better pain control, no further palpitations, and appropriate progress made w/ PT today. Postoperative Procedures: Procedures Operation Date: 05/19/23 09:15 Actual Procedure Side Surgeon p L4-5, L5-S1 TLIF with posterior instrumentation-Robot Rachael Hurtado MD Postoperative day: 2 Quality VTE Deep Vein Thrombosis/Pulmonary Embolism Present on Admission: No
[2023-05-21 08:00] VITALS: BP 132/71; PULSE 91; RESP 16; TEMP 36.7; O2SAT 94
[2023-05-21] MEDS: CYCLOBENZAPRINE 10 MG TABLET 5 MG PO ×2 (08:13→16:49)
[2023-05-21] MEDS: GABAPENTIN 300 MG CAPSULE PO ×3 (08:14→20:46)
[2023-05-21] MEDS: DOCUSATE 100 MG CAPSULE PO ×2 (08:14→20:46)
[2023-05-21] MEDS: ACETAMINOPHEN 325 MG TABLET 650 MG PO ×3 (08:19→20:47)
--- NOTE | 2023-05-21 09:00 | PT.IPTN ---
Current Diagnoses Spondylolisthesis, lumbar region (05/19/23) Spinal stenosis, lumbar region with neurogenic claudication (05/19/23) Arthrodesis status (05/19/23) Surgery Performed Operation Date: 05/19/23 09:15 Actual Procedures p L4-5, L5-S1 TLIF with posterior instrumentation-Robot - Rachael Hurtado MD Physical Therapy Treatment Note M2 PT-IP Current Condition Start: 05/20/23 12:29 Freq: NEEDED Status: Active Protocol: Document 05/20/23 09:45 AB (Rec: 05/20/23 12:42 AB [id number]) Physical Therapy Current Condition Current Condition Evaluation Date 05/20/23 Treatment Diagnosis s/p L4-5, L5S1 TLIF; difficulty in walking Onset Date 05/19/23 M3 PT-IP Subjective Start: 05/20/23 12:29 Freq: NEEDED Status: Active Protocol: Document 05/21/23 10:09 TS (Rec: 05/21/23 10:19 TS [id number]) Subjective Physical Therapy Visit Type Type Treatment Note Visit Start Time 09:00 Visit Stop Time 09:23 Number of RADIO TESTER Visits 2 Physical Therapy Visit Comments Patient Comments Pt found resting in bed, is agreeable to PT. Therapy Pain Assessment Pain When Pain Assessed At Rest Pain Present Pain Present Pain Reported M4 PT-IP Mobility and Gait Start: 05/20/23 12:29 Freq: NEEDED Status: Active Protocol: Document 05/21/23 10:09 TS (Rec: 05/21/23 10:19 TS [id number]) PT-Bed Mobility Assessment Rolling Type of Rolling Log Rolling Level of Assist Minimal Assistance Supine to Sit Supine to Sit Moderate Assistance Scooting Scooting to Edge of Bed Standby Assistance PT-Transfer Assessment Sit to and From Stand Sit to and from Stand Standby Assistance Equipment Transfer Assistive Device Gait Belt,Front Wheeled Walker Orthotic/Prosthetic Devices or Brace: No Comments Mobility Comments pt recalled 1/3 spinal precautionss(no twisting). Logroll to R side [place] with max cues for sequencing. Supine to sit ModA for uprigthing trunk and cues for BUE support. STS from bed SBA with FWW, pt has good standing balance. She ambulated ~100' SBA with FWW and step thru gait. Pt ambulated bakc to room, was left in chair with all needs met. Gait Assessment Gait Gait Assistance Required: Standby Assistance Distance (Feet) 100 Able to Maintain Weight Bearing Status Yes During Gait Assistive Devices Assistive Device Gait Belt,Front Wheeled Walker Orthotic/Prosthetic Devices or Brace: No Gait Deviations General Gait Pattern Ataxic,Decreased Stride Length ,Decreased Feet Clearance, Narrow Based Gait,Step-to Gait Factors Limiting Gait Function Factors Limiting Gait Function Decreased Activity Tolerance, Decreased Strength,Difficulty Following Directions,Limited Range of Motion,Pain,Poor Balance,Poor Safety Awareness Comments Gait Comments See mobility comments M5 PT-IP Objective Assessments Start: 05/20/23 12:29 Freq: NEEDED Status: Active Protocol: Document 05/20/23 09:45 AB (Rec: 05/20/23 12:42 AB [id number]) Orientation Orientation/Cognition Level of Alertness Alert Orientation Name,Place,Situation Language Function Ability No Deficits Noted Safety Awareness Decreased Safety Awareness Memory Description Short Term Impaired Gross Range of Motion Lower Extremity ROM Assessment Within Functional Limits Strength Lower Extremity Strength Assessment Right Impaired Hip 3+/5 Knee 3+/5 Coordination Assessment Gross Coordination Gross Coordination WNL Muscle Tone Muscle Tone WNL Yes M6 PT-IP Treatment Start: 05/20/23 12:29 Freq: NEEDED Status: Active Protocol: Document 05/21/23 10:09 TS (Rec: 05/21/23 10:19 TS [id number]) Physical Therapy Treatment Education Education Provided Precautions,Weight Bearing Status,Post-Op Packet,Safety M7 PT-IP Assessment and Plan Start: 05/20/23 12:29 Freq: NEEDED Status: Active Protocol: Document 05/21/23 10:09 TS (Rec: 05/21/23 10:19 TS [id number]) PT Summary Assessment and Plan Potential Rehabilitation Potential Fair Summary Impairments Pain,ROM,Strength,Balance, Coordination,Sensation,Tone, Cognition,Bed Mobility, Transfers,Gait,Activity Tolerance Progress Towards Goals Progressing Toward Goals Assessment Summary Charlotte continues to do well with her mobility. She is [place] for logroll with max cues for sequencing. She required ModA for supine to sit and again with max cues. She progressed gait to ~100'SBA with FWW, had no buckling or LOB. PT is recommending home with 24/7 assist at this time. Goals Bed Mobility Goal Independent Transfer Goal Independent,Front Wheeled Walker Gait Goal Independent,Front Wheel Walker Gait Distance 200 Other Goals up/down 13 steps R rail ascending SBA Days to Meet Goals 5 Frequency of Treatment Frequency Of Treatment Twice a Day Treatment Plan Physical Therapy Treatment Plan Bed Mobility Training,Transfer Training,Gait Training, Therapeutic Exercise,Balance Retraining,Post Op Education, Discharge Planning,Hot or Cold Pack,Neuromuscular Re-ed, Coordination Retraining,Manual Therapy Precautions Lumbar Precautions Log Roll,No Twisting,Limit Bending,Lifting Restriction of 10 lbs,Gait Belt above Incisional Area Recommendations To Nursing Amount of Assist Needed 1 Person Assist Discharge Recommendations PT Discharge Recommendations Home with 24/ Assist Available Transportation Needs at Discharge Private Vehicle
--- NOTE | 2023-05-21 11:58 | PC.NURSE ---
Transfer: Report called to [facility] ROSINA Benedict is the admitting nurse. Reviewed fall and hospital course. Skin condition. Mobility. Wound. She is from [place] and plans to transfer from [facility] to possibly another facility in [place]. Discussed f/u visits. Reviewed pt's hx of hypotension. Currently has had the same here. Systolic bp down to 80's when standing but she is asymptomatic with same. She is wearing her compression stockings and abd binder. Pain has been minimal, using tylenol and it has been effective. She received a dose this am to cover for transport. Questions answered. Pt reports she had a small bm yesterday. Pt was transported to facility via there service. Jonelle was notified of transport. (she is pt's ride to home/SNF in [place])She reported when she called patient this am she had been a little teary. She is sad about the fall. Pt notified of her arrival on 06/05. Mrs Morrissey will call her later since she is being transported now. Pt voiced no concerns when tranported.
[2023-05-21] MEDS: polyethylene glycoL 3350 17 GM POWD.PACK PO (12:36)
--- NOTE | 2023-05-21 14:21 | PT.IPTN ---
Current Diagnoses Spondylolisthesis, lumbar region (05/19/23) Spinal stenosis, lumbar region with neurogenic claudication (05/19/23) Arthrodesis status (05/19/23) Surgery Performed Operation Date: 05/19/23 09:15 Actual Procedures p L4-5, L5-S1 TLIF with posterior instrumentation-Robot - Rcahael Hurtado MD Physical Therapy Treatment Note M2 PT-IP Current Condition Start: 05/20/23 12:29 Freq: NEEDED Status: Active Protocol: Document 05/20/23 09:45 AB (Rec: 05/20/23 12:42 AB [id number]) Physical Therapy Current Condition Current Condition Evaluation Date 05/20/23 Treatment Diagnosis s/p L4-5, L5S1 TLIF; difficulty in walking Onset Date 05/19/23 M3 PT-IP Subjective Start: 05/20/23 12:29 Freq: NEEDED Status: Active Protocol: Document 05/21/23 14:45 TS (Rec: 05/21/23 14:58 TS [id number]) Subjective Physical Therapy Visit Type Type Treatment Note Visit Start Time 14:21 Visit Stop Time 14:46 Number of MANNEQUIN DECORATOR Visits 3 Physical Therapy Visit Comments Patient Comments Pt found resting in chair, feels more stiff this afternoon, is agreeable to PT. Therapy Pain Assessment Pain When Pain Assessed At Rest Pain Present Pain Present Pain Reported M4 PT-IP Mobility and Gait Start: 05/20/23 12:29 Freq: NEEDED Status: Active Protocol: Document 05/21/23 14:45 TS (Rec: 05/21/23 14:58 TS [id number]) PT-Transfer Assessment Sit to and From Stand Sit to and from Stand Standby Assistance Equipment Transfer Assistive Device Gait Belt,Front Wheeled Walker Orthotic/Prosthetic Devices or Brace: No Comments Mobility Comments STS from chair with FWW SBA with cues for pushing from arms of chair. She ambulated in hallway ~150'SBA with FWW with a step thru gait. She performed steps x3 with sidestepping with single rail and CGA from spouse. Pt ambulated back to room, sat on EOB for changing of dressing. Pt was left in chair waiting for OT training. Gait Assessment Gait Gait Assistance Required: Standby Assistance Distance (Feet) 150 Able to Maintain Weight Bearing Status Yes During Gait Assistive Devices Assistive Device Gait Belt,Front Wheeled Walker Orthotic/Prosthetic Devices or Brace: No Gait Deviations General Gait Pattern Ataxic,Decreased Stride Length ,Decreased Feet Clearance, Narrow Based Gait,Step-to Gait Factors Limiting Gait Function Factors Limiting Gait Function Decreased Activity Tolerance, Decreased Strength,Difficulty Following Directions,Limited Range of Motion,Pain,Poor Balance,Poor Safety Awareness Comments Gait Comments See mobility comments Stair Climbing Assessment Evaluation Level of Assist On Stairs Contact Guard Assistance Devices Stair Climbing Assistive Devices Left Railing Technique/Endurance Stair Climbing Direction Ascend and Descend Stair Climbing Technique Step to Step Number of Steps Climbed 3 Comments Stair Climbing Comments See mobility comments PT-Balance Assessment Sitting Balance and Reactions Static Sitting Balance Ability Good Dynamic Sitting Balance Ability Good Standing Balance and Reactions Static Standing Balance Ability Fair Dynamic Standing Balance Ability Fair Device Used FWW M5 PT-IP Objective Assessments Start: 05/20/23 12:29 Freq: NEEDED Status: Active Protocol: Document 05/20/23 09:45 AB (Rec: 05/20/23 12:42 AB [id number]) Orientation Orientation/Cognition Level of Alertness Alert Orientation Name,Place,Situation Language Function Ability No Deficits Noted Safety Awareness Decreased Safety Awareness Memory Description Short Term Impaired Gross Range of Motion Lower Extremity ROM Assessment Within Functional Limits Strength Lower Extremity Strength Assessment Right Impaired Hip 3+/5 Knee 3+/5 Coordination Assessment Gross Coordination Gross Coordination WNL Muscle Tone Muscle Tone WNL Yes M6 PT-IP Treatment Start: 05/20/23 12:29 Freq: NEEDED Status: Active Protocol: Document 05/21/23 14:45 TS (Rec: 05/21/23 14:58 TS [id number]) Physical Therapy Treatment Education Education Provided Precautions,Weight Bearing Status,Post-Op Packet,Safety M7 PT-IP Assessment and Plan Start: 05/20/23 12:29 Freq: NEEDED Status: Active Protocol: Document 05/21/23 14:45 TS (Rec: 05/21/23 14:58 TS [id number]) PT Summary Assessment and Plan Potential Rehabilitation Potential Fair Summary Impairments Pain,ROM,Strength,Balance, Coordination,Sensation,Tone, Cognition,Bed Mobility, Transfers,Gait,Activity Tolerance Progress Towards Goals Progressing Toward Goals Assessment Summary Charlotte continues to do well with her mobility. She is SBA for STS with FWW, She progressed her gait to ~150' SBA with FWW. She performed steps x3 with single rail sidestepping CGA from spouse. PT continues to recommend home with assist. Goals Bed Mobility Goal Independent Transfer Goal Independent,Front Wheeled Walker Gait Goal Independent,Front Wheel Walker Gait Distance 200 Other Goals up/down 13 steps R rail ascending SBA Days to Meet Goals 5 Frequency of Treatment Frequency Of Treatment Twice a Day Treatment Plan Physical Therapy Treatment Plan Bed Mobility Training,Transfer Training,Gait Training, Therapeutic Exercise,Balance Retraining,Post Op Education, Discharge Planning,Hot or Cold Pack,Neuromuscular Re-ed, Coordination Retraining,Manual Therapy Precautions Lumbar Precautions Log Roll,No Twisting,Limit Bending,Lifting Restriction of 10 lbs,Gait Belt above Incisional Area Recommendations To Nursing Amount of Assist Needed 1 Person Assist Discharge Recommendations PT Discharge Recommendations Home with Assistance Transportation Needs at Discharge Private Vehicle
--- NOTE | 2023-05-21 15:43 | OT.IP.TRT ---
Current Diagnoses Spondylolisthesis, lumbar region (05/19/23) Spinal stenosis, lumbar region with neurogenic claudication (05/19/23) Arthrodesis status (05/19/23) Surgery Performed Operation Date: 05/19/23 09:15 Actual Procedures p L4-5, L5-S1 TLIF with posterior instrumentation-Robot - Rachael Hurtado MD Occupational Therapy Treatment Note M2 OT-IP Current Condition Start: 05/20/23 11:28 Freq: Status: Active Protocol: Document 05/20/23 10:33 [facility] (Rec: 05/20/23 11:46 [facility] [id number]) Occupational Therapy Current Condition Current Condition Evaluation Date 05/20/23 Treatment Diagnosis S/P L4-5, L5-S1 TLIF Diagnosis Onset Date 05/19/23 Post Operative Precautions Lumbar Precautions Log Roll,No Twisting,Limit Bending,Lifting Restriction of 10 lbs,Gait Belt above Incisional Area M3 OT- IP Subjective and Pain Start: 05/20/23 11:28 Freq: Status: Active Protocol: Document 05/21/23 15:43 [facility] (Rec: 05/21/23 15:59 [facility] [id number]) OT- Subjective Occupational Therapy Visit Type Type Treatment Note Visit Start Time 15:00 Visit Stop Time 15:43 Occupational Therapy Visit Comments Patient Comments Pt wanting to shower. Patient/Caregiver Goals TO go home. OT Pain Assessment Pain When Pain Assessed During Mobility Pain Present Pain Present Pain Reported M4 OT- IP ADL's Start: 05/20/23 11:28 Freq: Status: Active Protocol: Document 05/21/23 15:43 [facility] (Rec: 05/21/23 15:59 [facility] [id number]) OT [id number] General Evaluation Self-Feeding Ability Independent OT ADL-Grooming Comments OT Grooming Comments Pt did prior. OT ADL-Dressing General Eval Lower Body Dressing Ability Minimal Assistance,Moderate Assistance Comments OT Dressing Comments Able to practice use of the poly operator for brief and socks. OT ADL-Toileting General Evaluation Toileting Ability Minimal Assistance Comments OT Toileting Comments Pt not able to reach adequately and needing assist to wipe for completeness. OT ADL-Bathing Bathing Type Bathing Type Shower General Evaluation Bathing Ability Maximal Assistance Areas Needing Assistance Wash/Dry Back,Wash/Dry Perineal Area,Wash/Dry Lower Extremities Comments OT Bathing Comments Pt needing assist for her legs and perineal area as unable to reach well. Suggested use of long thin towel so able to wash more effectively or to assist. M5 OT- IP IADL's Start: 05/20/23 11:28 Freq: Status: Active Protocol: Document 05/20/23 10:33 [facility] (Rec: 05/20/23 11:46 [facility] [id number]) OT-Instrumental Activities of Daily Living Deficits IADL Deficits Identified Deficits Home Safety Awareness Awareness of Need for Assistance at Home Good Awareness Ability to Problem Solve Emergency Able to Problem Solve Situations Meal Preparation Meal Preparation Caregiver Provides Assist Chain Splitter Chain Splitter Caregiver Provides Assist M6 OT- IP Functional Cognition Start: 05/20/23 11:28 Freq: Status: Active Protocol: Document 05/21/23 15:43 [facility] (Rec: 05/21/23 15:59 [facility] [id number]) Cognitive Factors Limiting Selfcare Function Cognitive Ability Level of Alertness Drowsy Attention Span Ability Capable of Focused Attention, Unable to Sustain Attention Ability to Follow Commands Able to Follow One Step Commands with Increased Time, Able to Follow One Step Commands with Repetition Cognitive Comments Cognitive Assessment Comments Pt a bit groggy and drowsy and needing cues to help sequence through task for showering needs. Pt bumping into items on the right side, pt is very groggy and feels it and therefore needing step by step commands to follow for safety . M7 OT- IP Mobility and Balance Start: 05/20/23 11:28 Freq: Status: Active Protocol: Document 05/21/23 15:43 [facility] (Rec: 05/21/23 15:59 [facility] [id number]) OT- Bed Mobility Assessment Sit to Supine Sit to Supine Assist Moderate Assistance OT-Transfer Assessment Sit to and From Stand Sit to and from Stand Minimal Assistance Transfers Transfer Ability Contact Guard Assistance Technique Transfer Destination Bed,Chair,Shower Stall,Toilet Transfer Technique Stand Step Pivot Devices Transfer Assistive Devices Gait Belt,Front Wheeled Walker Comments Mobility Comments VC to hinge at her hips so able to put more weight over her feet when coming to stand. Pt tends to lean on her heels when coming to stand. Suggested when medically cleared by the surgeon to have outpt PT to work on her core strength and hip flexibility so hopefully be able to be independent with her ADL needs especially for toileting. OT- Balance Assessment Sitting Balance and Reactions Static Sitting Balance Ability Good Dynamic Sitting Balance Ability Good Standing Balance and Reactions Static Standing Balance Ability Fair Dynamic Standing Balance Ability Fair Comments Other Balance Tests/Deviations/Treatment Pt noted tending to lean : slightly to the right and educated her to be sure to stiffen her right leg with use of the fww. M8 OT- IP Objective Assessments Start: 05/20/23 11:28 Freq: Status: Active Protocol: Document 05/20/23 10:33 [facility] (Rec: 05/20/23 11:46 [facility] [id number]) OT Strength Comments Strength Comments WFL for needs. M9 OT- IP Assessment and Plan Start: 05/20/23 11:28 Freq: Status: Active Protocol: Document 05/21/23 15:43 [facility] (Rec: 05/21/23 15:59 [facility] [id number]) OT Summary Assessment and Plan Potential Rehabilitation Potential Excellent Analytic Complexity at Evaluation Low Summary OT Impairments Pain,Strength,Balance, Functional Mobility,Grooming, Dressing,Toileting,Bathing, Toilet Transfers,Shower Transfers Progress Towards Goals Progressing Toward Goals,Slow Progress due to Medical Issues Assessment Summary Pt a bit groggy and having difficulty to follow commands and needing vc for sequencing through task of showering. Pt has a very supportive to be able to assist her at home. Pt to go home with 24/7 available assist. Goals Grooming Goal Independent Dressing Goal Minimal Assistance,[place]ar [place]eller Toileting Goal Independent Bathing Goal Standby Assistance Toilet Transfer Goal Minimal Assistance Shower Transfer Goal Standby Assistance Days to Meet Goals 5 Frequency of Treatment Frequency Of Treatment Once a Day Treatment Plan OT Treatment Plan ADL Training,Functional Mobility,Patient/Family Education,Discharge Planning Discharge Recommendations OT Discharge Recommendations Home with 24/7 Assist Available [facility] Transportation Needs at Discharge Private Vehicle
[2023-05-21 16:00] VITALS: BP 119/55; PULSE 96; RESP 16; TEMP 36.3; O2SAT 99
--- NOTE | 2023-05-21 19:16 | PC.NURSE ---
Pt feeling better today. Po pain med about q3hrs has been effective, pt report the flexaril has been helpful as well. She was able to work with physical therapy twice and had no heart issues come up while doing so. She also took a shower w/OT and had no cardiac issues then. Dressing to back was changed. She has two large stapled incisions and two small stapled incisions. Spouse was shown how to change dressing if it was needed. Elva are clean and dry with mnimal redness. Pt reporting she was having less pain after dressing was changed, the old dressing had been pulling on it. She thinks she will be ready to d/c home in the am.
[2023-05-21 20:28] VITALS: BP 128/71; PULSE 96; RESP 19; TEMP 36.6; O2SAT 98
[2023-05-21] MEDS: MELATONIN 3 MG TABLET PO (20:46)
[2023-05-21] MEDS: SENNOSIDES 8.6 MG TABLET 17.2 MG PO (20:46)
[2023-05-21] MEDS: OXYCODONE IR 5 MG TABLET PO (20:46)
[2023-05-22 00:13] VITALS: BP 109/46; PULSE 79; RESP 19; TEMP 36.4; O2SAT 94
[2023-05-22] MEDS: OXYCODONE IR 5 MG TABLET PO (02:22)
[2023-05-22] MEDS: ACETAMINOPHEN 325 MG TABLET 650 MG PO (03:12)
[2023-05-22 05:27] VITALS: BP 115/56; PULSE 86; RESP 19; TEMP 36.1; O2SAT 94
--- NOTE | 2023-05-22 07:24 | P.DS_ITS ---
History of Present Illness History of Present Illness Date Patient Seen: 05/22/23 Time Patient Seen: 07:24 Chief complaint: Low back pain Narrative: Pain is mild to severe depending on her activity level. Patient feels ready to go home this morning. She states she feels significantly better than yesterday. Her 's home and available to assist her. She has no shortness of breath or chest pain. No palpitations. Discharge Providers Provider Date of admission: 05/19/23 07:39 Discharge Date: 05/22/23 Primary care physician: Boris Nur MD Consults: 05/19/23 14:56 Consult to Occupational Therapy Evaluate & Treat Comment: Physician Instructions: Evaluate and treat Consult to Physical Therapy Evaluate & Treat Comment: Physician Instructions: Evaluate and Treat Discharge provider: Christopher Triplett PA-C Summary Hospital Course Discharge Diagnosis: 1. L4-5 spondylosis with radiculopathy 2. L5-S1 anterolisthesis 3. L5-S foraminal stenosis with radiculopathy Hospital Course: 1. L4-5, L5-S1 Postero-lateral and posterior interbody fusion 2. L4-5, L5-S1 interbody cage placement. 3. L4-5, L5-S1 decompressive laminectomy with bilateral facetecomies 4. L4-5, L5-S1 Posterior segmental instrumentation 5. [place] of bone marrow from iliac crest 6. Utilization of microsurgical technique and operating microscope 7. Utilization of robotic assisted navigation Same procedure as scheduled: Yes Indications: Patient has been having chronic back pain and worsening lumbar radiculopathy. Patient was found have grade 3 anterolisthesis at L5-S1 with severe bilateral neural foraminal stenosis correlating with her back and leg pain. Patient was scheduled for L4-5 L5-S1 fusion using L4 pedicle as pivot point for assistance of reducing patient has anterolisthesis as well as gaining additional points of fixation to prevent hardware loosening/failure. Patient failed multiple conservative management with worsening pain weakness and numbness in her lower extremity. Patient has been having difficulty performing activity of daily living. After discussing risks benefits of treatment options, patient elected proceed with surgery. Surgeon: Rachael Hurtado Furnace Charging Machine Operator: Lanette Queen Click Yes if Unassisted: No Anesthesia Type: General Operative Notes Closure Type: primary Specimen(s): none sent Prosthetic devices, grafts, tissues, transplants, or devices: Globus CREO MIS screws, Rise cages Applied: catheter Estimated Blood Loss (mL): 100 Blood products transfused: none Patient admitted to the hospital for L4-L5, L5-S1 fusion. Patient consented to the same. Patient underwent surgery on May 19, 2023. Patient back in her room recovering well as in stable condition. [address] [address] Progress Note Patient: Charlotte Parsons MR#: [id number] : 1950 Acct:[id number] Age/Sex: 72 / F Admit Date: 05/19/23 Provider: Carmel Velásquez MD ADDENDUMReviewed EKGs morning, patient asymptomatic currently sinus, confirmed with nursing that tele not noticed any more abnormalities since before midnight. Plan continue till this morning allow patient to work with physical therapy. If no abnormalities and no symptoms we will discontinue tele after the Addendum Documented By: Carmel Velásquez MD 05/20/23 0782 Addendum Signed By: <Electronically signed by Carmel Velásquez MD> 05/20/23 0734 ADDENDUMaddendum to add- nurse mentions 2 attempts to reach MD--- when first attempt -- MD was on other line with ER about different Pt Addendum Documented By: Carmel Velásquez MD 05/19/23 2321 Addendum Signed By: <Electronically signed by Carmel Velásquez MD> 05/19/23 2328 Subjective Subjective Interval history: nurse jacklyn called at 2200- stated - noted pt heart rate mostly 80s then some pvcs?- nurse thought irregular- HR report jump around up to 150s short span? put on tele- then ekg -one sinus and then also an area-indeterminate?- ( reviewed chart (- no vitals documented after 1999 yet)--on further inquiry-- per nurse current vitals NL and pt asymptomatic- pt on fluids/asymptomatic - rec -monitor-- if change then hospitalist consult.- Patient remained stable through hospital stays. No further palpitations. No chest pain or shortness of breath. Pain has been difficult to manage which has made mobilizing difficult. Patient is significantly improved this morning. Patient feels ready to be discharged home this morning. Patient's is home to assist her. Patient will be discharged home today in stable condition. Status at Discharge Cognitive/behavioral status at discharge: oriented Functional status at discharge: uses cane/walker Overall status at discharge: patient is progressing back to baseline Exam Vital Signs (past 8 hours): - 05/22/23 00:13 05/22/23 05:27 Temperature 97.6 F 96.9 F L Pulse Rate 79 86 Respiratory Rate 19 19 Blood Pressure 109/46 L 115/56 L Pulse Oximetry 94 94 Oxygen Flow Rate 0 0 Oxygen Delivery Method Room Air Oxygen Flow Rate 0 Narrative Exam Narrative: 72-year-old female resting comfortably at bedside chair in no apparent distress. Motor functions intact bilateral lower extremities. Sensation grossly intact to light touch bilateral lower extremities. Const General: cooperative and comfortable Nutritional Appearance: average body habitus Orientation: alert Resp Effort & Inspection: normal respiratory effort and able to speak in complete sentences Objective Labs 05/20/23 05:20 PFSH Medical History History of COVID-19 (04/2019) Spinal stenosis Pre-diabetes Kidney stones Sciatica Surgical History Hx of colonoscopy (03/2023) Hx of knee surgery Hx of tonsillectomy S/P epidural steroid injection Social History household members: spouse Smoking Status: Never smoker alcohol intake: current Discharge Assessment & Plan Assessment and Plan Assessment: Patient progressing as expected. Plan of Treatment: Multimodal pain management Follow up with primary care provider regarding palpitations Weight-bearing as tolerated, limit bending, twisting, lifting Discharge home today in stable condition Discharge Plan Discharge Plan Patient Disposition: Home Discharge orders & Medications Prescriptions: New acetaminophen 325 mg Tablet 650 mg PO Q6H PRN (Reason: Fever/Mild Pain (1-3)) Qty: 60 0RF docusate sodium 100 mg Capsule 100 mg PO BID Qty: 10 0RF oxycodone 5 mg tablet 5 mg PO Q4H PRN (Reason: pain) Qty: 60 0RF Rx Instructions: 1-2 tablets every 4 hours as needed for pain Continued gabapentin 300 mg Capsule 300 mg PO TID Discontinued ibuprofen 200 mg Tablet 400 mg PO Q6H PRN (Reason: Pain) Follow up/Referrals: Boris Nur MD [Primary Care Provider] - (Recommend follow up with PCP for palpitations) Rachael Hurtado MD [Physician] - 06/05/23 11:10 am (Follow up w/ Christopher Triplett PA-C, at [facility] office in [place].) Diet/Activity/Treatments Diet: Diet as Tolerated Activity: No deep bending or twisting at the waist. No lifting more than 10 pounds. Cold/Heat Therapy: Heating pad to low back as needed for pain. Skin/Wound/Dressing Care Report to your healthcare provider any signs of infection, such as:: chills, fever, night sweats, unusual drainage and unusual redness Dressing: May shower. Keep dressing as dry as possible. If dressing becomes wet or dirty, may remove and replace with clean, dry gauze. No bathing or otherwise soaking incisions. Do not apply any creams, lotions, or ointments to incisions. Visit Report/Discharge Packet Instructions: DI for Prescription Opioid Use, DI for Transforaminal Lumbar Interbody Fusion Stand Alone Forms: Patient Portal/API, Stroke Signs & Symptoms, Surgery Discharge Discharge Data Primary Care Provider: Boris Nur Quality VTE Deep Vein Thrombosis/Pulmonary Embolism Present on Admission: No
[2023-05-22 08:00] VITALS: BP 101/56; PULSE 88; RESP 16; TEMP 36.1; O2SAT 98
[2023-05-22] MEDS: GABAPENTIN 300 MG CAPSULE PO (08:16)
[2023-05-22] MEDS: OXYCODONE IR 10 MG TABLET PO (08:16)
[2023-05-22] MEDS: DOCUSATE 100 MG CAPSULE PO (08:16)
--- NOTE | 2023-05-22 08:50 | PT.IPTN ---
Current Diagnoses Spondylolisthesis, lumbar region (05/19/23) Spinal stenosis, lumbar region with neurogenic claudication (05/19/23) Arthrodesis status (05/19/23) Surgery Performed Operation Date: 05/19/23 09:15 Actual Procedures p L4-5, L5-S1 TLIF with posterior instrumentation-Robot - Rachael Hurtado MD Physical Therapy Treatment Note M2 PT-IP Current Condition Start: 05/20/23 12:29 Freq: NEEDED Status: Active Protocol: Document 05/20/23 09:45 AB (Rec: 05/20/23 12:42 AB [id number]) Physical Therapy Current Condition Current Condition Evaluation Date 05/20/23 Treatment Diagnosis s/p L4-5, L5S1 TLIF; difficulty in walking Onset Date 05/19/23 M3 PT-IP Subjective Start: 05/20/23 12:29 Freq: NEEDED Status: Active Protocol: Document 05/22/23 09:14 TS (Rec: 05/22/23 09:20 TS [id number]) Subjective Physical Therapy Visit Type Type Treatment Note Visit Start Time 08:50 Visit Stop Time 09:05 Number of CADDYMASTER Visits 4 Physical Therapy Visit Comments Patient Comments Pt found resting in chair, is agreeable to PT. Therapy Pain Assessment Pain When Pain Assessed At Rest Pain Present Pain Present Pain Reported M4 PT-IP Mobility and Gait Start: 05/20/23 12:29 Freq: NEEDED Status: Active Protocol: Document 05/22/23 09:14 TS (Rec: 05/22/23 09:20 TS [id number]) PT-Transfer Assessment Sit to and From Stand Sit to and from Stand Standby Assistance Equipment Transfer Assistive Device Gait Belt,Front Wheeled Walker Orthotic/Prosthetic Devices or Brace: No Comments Mobility Comments STS from chair SBA with use of FWW, pt has good standing balance. She ambulated ~250' SBA with FWW and step thru gait. She performed steps x3 with single rail sidestepping on stairs SBA. She ambulated back to room, was left in chair, all needs met. Gait Assessment Gait Gait Assistance Required: Standby Assistance Distance (Feet) 250 Able to Maintain Weight Bearing Status Yes During Gait Assistive Devices Assistive Device Gait Belt,Front Wheeled Walker Orthotic/Prosthetic Devices or Brace: No Gait Deviations General Gait Pattern Ataxic,Decreased Stride Length ,Decreased Feet Clearance, Narrow Based Gait,Step-to Gait Factors Limiting Gait Function Factors Limiting Gait Function Decreased Activity Tolerance, Decreased Strength,Difficulty Following Directions,Limited Range of Motion,Pain,Poor Balance,Poor Safety Awareness Comments Gait Comments See mobility comments Stair Climbing Assessment Evaluation Level of Assist On Stairs Contact Guard Assistance Devices Stair Climbing Assistive Devices Left Railing Technique/Endurance Stair Climbing Direction Ascend and Descend Stair Climbing Technique Step to Step Number of Steps Climbed 3 Comments Stair Climbing Comments See mobility comments PT-Balance Assessment Sitting Balance and Reactions Static Sitting Balance Ability Good Dynamic Sitting Balance Ability Good Standing Balance and Reactions Static Standing Balance Ability Fair Dynamic Standing Balance Ability Fair Device Used FWW M5 PT-IP Objective Assessments Start: 05/20/23 12:29 Freq: NEEDED Status: Active Protocol: Document 05/20/23 09:45 AB (Rec: 05/20/23 12:42 AB [id number]) Orientation Orientation/Cognition Level of Alertness Alert Orientation Name,Place,Situation Language Function Ability No Deficits Noted Safety Awareness Decreased Safety Awareness Memory Description Short Term Impaired Gross Range of Motion Lower Extremity ROM Assessment Within Functional Limits Strength Lower Extremity Strength Assessment Right Impaired Hip 3+/5 Knee 3+/5 Coordination Assessment Gross Coordination Gross Coordination WNL Muscle Tone Muscle Tone WNL Yes M6 PT-IP Treatment Start: 05/20/23 12:29 Freq: NEEDED Status: Active Protocol: Document 05/22/23 09:14 TS (Rec: 05/22/23 09:20 TS [id number]) Physical Therapy Treatment Education Education Provided Precautions,Weight Bearing Status,Post-Op Packet,Safety M7 PT-IP Assessment and Plan Start: 05/20/23 12:29 Freq: NEEDED Status: Active Protocol: Document 05/22/23 09:14 TS (Rec: 05/22/23 09:20 TS [id number]) PT Summary Assessment and Plan Potential Rehabilitation Potential Fair Summary Impairments Pain,ROM,Strength,Balance, Coordination,Sensation,Tone, Cognition,Bed Mobility, Transfers,Gait,Activity Tolerance Progress Towards Goals Progressing Toward Goals Assessment Summary Charlotte continues to do well with her mobility. She is SBA for STS and for gait with FWW. She progressed her gait to ~ 250'SBA . She performed steps x3 with sidestepping and single rail use. She demonstrates good awareness of her spinal precautions with mobility. PT is recommending pt return home with assist. Goals Bed Mobility Goal Independent Transfer Goal Independent,Front Wheeled Walker Gait Goal Independent,Front Wheel Walker Gait Distance 200 Other Goals up/down 13 steps R rail ascending SBA Days to Meet Goals 5 Frequency of Treatment Frequency Of Treatment Twice a Day Treatment Plan Physical Therapy Treatment Plan Bed Mobility Training,Transfer Training,Gait Training, Therapeutic Exercise,Balance Retraining,Post Op Education, Discharge Planning,Hot or Cold Pack,Neuromuscular Re-ed, Coordination Retraining,Manual Therapy Precautions Lumbar Precautions Log Roll,No Twisting,Limit Bending,Lifting Restriction of 10 lbs,Gait Belt above Incisional Area Recommendations To Nursing Amount of Assist Needed Standby Assistance Discharge Recommendations PT Discharge Recommendations Home with Assistance Transportation Needs at Discharge Private Vehicle
--- NOTE | 2023-05-22 09:38 | PC.NURSE ---
Pt sitting in chair, Med for discomfort at 0800 w/ good relief. Ambulated hallway w/PT Discharge orders received. Home instructions given w/understanding. Pt escorted by staff via W/C to waiting vehicle
== END 2023-05-22 10:55 | disposition home or self-care (01) | DRG 455 ==
PROVIDERS: Admitting Provider Orthopaedic Surgery Orthopaedic Surgery of the Spine; PCP Internal Medicine; Referring Provider Physical Medicine & Rehabilitation; Visit Provider Orthopaedic Surgery Orthopaedic Surgery of the Spine
PROC: 0SG0071 Fusion of Lumbar Vertebral Joint with Autologous Tissue Substitute, Posterior Approach, Posterior Column, Open Approach (ICD-10-PCS; principal; 2023-05-19 09:15)
DX: M47.26 Other spondylosis with radiculopathy, lumbar region (principal); M43.17 Spondylolisthesis, lumbosacral region; M48.07 Spinal stenosis, lumbosacral region; M54.17 Radiculopathy, lumbosacral region; I49.3 Ventricular premature depolarization; G89.29 Other chronic pain
CPT/HCPCS: 36415; 72100; 76000; 82962; 85014; 85018; 93005; 93010; 97116; 97162; 97165; 97530; 97535; C1713; C1831; C9290; J0136; J0171; J0330; J0690; J1100; J1170; J2250; J2405; J2704; J3010